=== PATIENT | female | born 1975 | race Caucasian/White ===

== ENCOUNTER → 2020-03-24 | Outpatient (CLI) | payer MEDICARE, OTHER ==
[~2020-03-24] MED LIST: MIRTAZAPINE30 MG PO; NEURONTIN800 MG PO; OMEPRAZOLE20 MG PO; PREMARIN0.45 MG PO; PROMETHAZINE12.5 M1 PO; SEROQUEL25 MG PO; SEROQUEL50 MG PO; SUBOXONE 8 MG-1 EACH SQ; VISTARIL50 MG PO; VITAMIN D21250 MCG PO; WELLBUTRIN SR150 M1 PO; ZESTRIL2.5 MG PO; ZYPREXA20 MG PO; ZYPREXA5 MG PO
== END ==
LOC: KOH-I 14:08
DX: M79.672 Pain in left foot (principal)
CPT/HCPCS: 73630

== ENCOUNTER → 2020-05-06 | Outpatient (CLI) | payer MEDICARE, OTHER | LOC: KOH-I 13:20 | DX: M79.672 Pain in left foot (principal); M19.072 Primary osteoarthritis, left ankle and foot | CPT/HCPCS: 73718 ==

== ENCOUNTER → 2020-06-12 | Outpatient (CLI) | payer MEDICARE, OTHER ==
[2020-06-12 10:07] LABS: HEMOGLOBIN 12.5 gm/dl (12.3-15.3); RED BLOOD COUNT 4.26 M/UL (4.00-5.10); WHITE BLOOD COUNT 5.1 K/UL (4.5-11.0)
[2020-06-12 10:22] LABS: BUN/CREATININE RATIO 15 (0-10)
== END ==
LOC: OPSV2 09:02
PROVIDERS: Podiatrist Foot & Ankle Surgery
DX: Z01.812 Encounter for preprocedural laboratory examination (principal)
CPT/HCPCS: 36415; 80048; 80307; 85027

== ENCOUNTER → 2020-06-18 | Day surgery (SDC) | payer MEDICARE, OTHER ==
[~2020-06-18] VITALS: Ht 170.2 cm; Wt 57.9 kg
== END | disposition home or self-care (01) ==
LOC: OR 06:58
DX: M19.072 Primary osteoarthritis, left ankle and foot (principal); M89.9 Disorder of bone, unspecified; I10 Essential (primary) hypertension; M79.2 Neuralgia and neuritis, unspecified; J44.9 Chronic obstructive pulmonary disease, unspecified; F17.210 Nicotine dependence, cigarettes, uncomplicated; F41.9 Anxiety disorder, unspecified; F43.10 Post-traumatic stress disorder, unspecified; F31.9 Bipolar disorder, unspecified; F11.10 Opioid abuse, uncomplicated; Z88.1 Allergy status to other antibiotic agents; Z88.8 Allergy status to other drugs, medicaments and biological substances; Z79.899 Other long term (current) drug therapy
CPT/HCPCS: 73620; 73630; 76000; C1713; J0690; J1100; J2001; J2250; J2405; J2704; J2795; J3010; J3370; J7030; J7120; Q4133

== ENCOUNTER → 2020-07-10 | Outpatient (CLI) | payer MEDICARE, OTHER | LOC: KOH-I 14:11 | DX: M79.672 Pain in left foot (principal); Z98.890 Other specified postprocedural states | CPT/HCPCS: 73630 ==

== ENCOUNTER → 2020-07-31 | Outpatient (CLI) | payer MEDICARE, OTHER | LOC: KOH-I 14:07 | DX: M79.672 Pain in left foot (principal) | CPT/HCPCS: 73630 ==

== ENCOUNTER → 2020-08-21 | Outpatient (CLI) | payer MEDICARE, OTHER | LOC: KOH-I 15:03 | DX: M79.672 Pain in left foot (principal) | CPT/HCPCS: 73630 ==

== ENCOUNTER → 2020-10-02 | Outpatient (CLI) | payer MEDICARE, OTHER | LOC: KOH-I 09:36 | DX: M79.672 Pain in left foot (principal); M19.072 Primary osteoarthritis, left ankle and foot | CPT/HCPCS: 73630 ==

== ENCOUNTER → 2021-01-20 | Outpatient (CLI) | payer MEDICARE, OTHER | LOC: KOH-I 08:53 | DX: M79.672 Pain in left foot (principal) | CPT/HCPCS: 73630 ==

== ENCOUNTER → 2021-02-19 | Outpatient (CLI) | payer OTHER | LOC: KOH-I 09:04 | DX: M79.672 Pain in left foot (principal); M20.11 Hallux valgus (acquired), right foot | CPT/HCPCS: 73630 ==

== ENCOUNTER → 2021-03-06 | Day surgery (SDC) | payer MEDICARE, OTHER ==
[~2021-03-06] VITALS: Ht 170.2 cm; Wt 55.3 kg
[~2021-03-06] MED LIST changes: +ATORVASTATIN CA10 MG PO; +CHANTIX PO; +IBUPROFEN800 MG PO; +SERTRALINE HCL50 MG PO
[2021-03-06 08:19] LABS: HEMOGLOBIN 12.4 gm/dl (12.3-15.3); RED BLOOD COUNT 4.27 M/UL (4.00-5.10); WHITE BLOOD COUNT 12.3 K/UL (4.5-11.0)
[2021-03-06 08:52] LABS: BUN/CREATININE RATIO 22 (0-10)
== END | disposition home or self-care (01) ==
LOC: OR 07:56
PROVIDERS: Podiatrist Foot & Ankle Surgery
PROC: 0QBN0ZZ Excision of Right Metatarsal, Open Approach (ICD-10-PCS; 2021-03-06)
PROC: 0QSN04Z Reposition Right Metatarsal with Internal Fixation Device, Open Approach (ICD-10-PCS; 2021-03-06)
PROC: 3E0T3GC Introduction of Other Therapeutic Substance into Peripheral Nerves and Plexi, Percutaneous Approach (ICD-10-PCS; 2021-03-06)
PROC: 01NH0ZZ Release Peroneal Nerve, Open Approach (ICD-10-PCS; principal; 2021-03-06 09:25)
DX: M20.11 Hallux valgus (acquired), right foot (principal); M89.9 Disorder of bone, unspecified; F17.210 Nicotine dependence, cigarettes, uncomplicated; E78.5 Hyperlipidemia, unspecified; K21.9 Gastro-esophageal reflux disease without esophagitis; M19.90 Unspecified osteoarthritis, unspecified site; G62.9 Polyneuropathy, unspecified; Z20.822 Contact with and (suspected) exposure to COVID-19; Z88.1 Allergy status to other antibiotic agents; Z88.8 Allergy status to other drugs, medicaments and biological substances; Z79.899 Other long term (current) drug therapy
CPT/HCPCS: 36415; 73630; 76000; 80048; 85027; J0690; J1100; J1170; J1885; J2001; J2250; J2405; J2704; J2795; J3010; J3370; J7120

== ENCOUNTER → 2021-03-10 | Outpatient (CLI) | payer MEDICARE, OTHER | LOC: KOH-I 09:43 | DX: M79.671 Pain in right foot (principal); Z96.698 Presence of other orthopedic joint implants | CPT/HCPCS: 73630 ==

== ENCOUNTER → 2021-03-23 | Outpatient (CLI) | payer MEDICARE, OTHER | LOC: KOH-I 09:03 | DX: M79.671 Pain in right foot (principal); Z96.698 Presence of other orthopedic joint implants | CPT/HCPCS: 73630 ==

== ENCOUNTER → 2021-04-14 | Outpatient (CLI) | payer MEDICARE, OTHER | LOC: KOH-I 14:33 | DX: M79.671 Pain in right foot (principal); Z98.890 Other specified postprocedural states | CPT/HCPCS: 73630 ==

== ENCOUNTER → 2021-05-12 | Outpatient (CLI) | payer MEDICARE, OTHER | LOC: KOH-I 08:48 | DX: M79.671 Pain in right foot (principal); Z98.890 Other specified postprocedural states | CPT/HCPCS: 73610; 73630 ==

== ENCOUNTER → 2021-06-16 | Outpatient (CLI) | payer MEDICARE, OTHER | LOC: KOH-I 09:26 | DX: M79.671 Pain in right foot (principal); S92.111A Displaced fracture of neck of right talus, initial encounter for closed fracture; Z98.890 Other specified postprocedural states | CPT/HCPCS: 73630 ==

== ENCOUNTER 2021-07-11 14:17 | Emergency (ER) | payer MEDICARE, OTHER ==
[2021-07-11 15:25] LABS: RED BLOOD COUNT 4.08 M/UL (4.00-5.10); WHITE BLOOD COUNT 10.8 K/UL (4.5-11.0)
[2021-07-11] MEDS ORDERED: ZOFRAN 4 MG TAB4 MG PO (18:30)
[2021-07-11] MEDS ORDERED: ZITHROMAX250 MG PO (18:30)
[2021-07-11] MEDS ORDERED: OMNICEF 300 MG300 MG PO (18:30)
[2021-07-11] MEDS ORDERED: PHENERGAN 12.12.5 M1 PO (19:30)
== END 2021-07-11 19:44 | disposition home or self-care (01) ==
LOC: ER1 14:17
PROVIDERS: Physician Assistant Medical
DX: J18.9 Pneumonia, unspecified organism (principal); R11.0 Nausea; F17.210 Nicotine dependence, cigarettes, uncomplicated; Z88.8 Allergy status to other drugs, medicaments and biological substances; Z88.5 Allergy status to narcotic agent; Z20.822 Contact with and (suspected) exposure to COVID-19
CPT/HCPCS: 0240U; 71045; 80053; 81001; 82550; 82553; 83605; 84484; 85025; 87040; 87086; 93005; 96374; 96375; 99284; J0696; J2550

== ENCOUNTER 2021-09-06 19:35 | Emergency (ER) | payer MEDICARE, OTHER ==
[~2021-09-06 19:35] MED LIST changes: +OMNICEF 300 MG300 MG PO; +PHENERGAN 12.12.5 M1 PO; +ZITHROMAX250 MG PO; +ZOFRAN 4 MG TAB4 MG PO
[2021-09-07 00:24] LABS: HEMOGLOBIN 11.9 gm/dl (12.3-15.3); RED BLOOD COUNT 4.04 M/UL (4.00-5.10); WHITE BLOOD COUNT 12.8 K/UL (4.5-11.0)
[2021-09-07 00:34] LABS: BUN/CREATININE RATIO 13 (0-10)
[2021-09-07] MEDS ORDERED: OMNICEF 300 MG300 MG PO (00:48)
[2021-09-07] MEDS ORDERED: PREDNISONE 10 M10 MG PO (00:48)
[2021-09-07] MEDS ORDERED: PHENERGAN 25 MG25 M1 PO (00:54)
== END 2021-09-07 01:30 | disposition home or self-care (01) ==
LOC: ER1 19:35
PROVIDERS: Physician Assistant
DX: J44.9 Chronic obstructive pulmonary disease, unspecified (principal); R00.0 Tachycardia, unspecified; I10 Essential (primary) hypertension; M54.50 Low back pain, unspecified; F17.210 Nicotine dependence, cigarettes, uncomplicated; Z90.49 Acquired absence of other specified parts of digestive tract; Z90.710 Acquired absence of both cervix and uterus; Z88.8 Allergy status to other drugs, medicaments and biological substances; Z90.89 Acquired absence of other organs; Z20.822 Contact with and (suspected) exposure to COVID-19
CPT/HCPCS: 0240U; 71046; 80053; 81001; 82550; 82553; 84484; 85025; 85379; 87040; 87081; 87880; 94664; 96374; 96375; 99284; J0696; J2550

== ENCOUNTER → 2021-09-21 | Outpatient (CLI) | payer MEDICARE, OTHER ==
[~2021-09-21] MED LIST changes: +PHENERGAN 25 MG25 M1 PO; +PREDNISONE 10 M10 MG PO
== END ==
LOC: KOH-I 15:39
DX: M79.671 Pain in right foot (principal); M25.471 Effusion, right ankle
CPT/HCPCS: 73610; 73630

== ENCOUNTER → 2021-10-08 | Outpatient (CLI) | payer MEDICARE, OTHER | LOC: KOH-I 08:38 | DX: M25.571 Pain in right ankle and joints of right foot (principal); M25.471 Effusion, right ankle; M85.671 Other cyst of bone, right ankle and foot; S92.114A Nondisplaced fracture of neck of right talus, initial encounter for closed fracture | CPT/HCPCS: 73721 ==